=== PATIENT | female | born 1965 | race Caucasian/White ===

== ENCOUNTER 2018-03-31 06:21 | Emergency (ER) | payer OTHER ==
[~2018-03-31] VITALS: Ht 154.9 cm; Wt 68.0 kg
[2018-03-31] MEDS ORDERED: BENTYL10 MG/1 ML (06:31)
== END 2018-03-31 14:01 | disposition home or self-care (01) ==
LOC: ER 06:21
DX: R10.13 Epigastric pain (principal)

== ENCOUNTER → 2024-03-17 | Emergency (ER) | payer OTHER ==
[~2024-03-17] VITALS: Ht 154.9 cm; Wt 65.8 kg
[~2024-03-17] MED LIST: BENTYL10 MG/1 ML; COZAAR25 MG; HYOSCYAMINE SULFATE 0.125 MG TAB.SUBL ONE; LEVOTHYROXINE25 MCG; PLAVIX75 MG; TRAMADOL HCL 50 MG TABLET PO STA
== END | disposition left against medical advice (07) ==
LOC: ER 13:05
DX: M25.551 Pain in right hip (principal); E03.8 Other specified hypothyroidism; Z88.0 Allergy status to penicillin; Z88.6 Allergy status to analgesic agent; Z91.041 Radiographic dye allergy status